=== PATIENT | female | born 1990 | race Caucasian/White ===

== ENCOUNTER 2020-06-01 01:00 | Inpatient (IN) | payer OTHER ==
[2020-06-01] MEDS: ELECTROLYTE-148 SOLN 1,000 ML IV SCH ×2 (02:00→07:58)
--- NOTE | 2020-06-01 02:02 | HP ---
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: Alzheimer's, CVA, Dementia, Migraine, Multiple Sclerosis, Peripheral Neuropathy, Parkinson's, Seizure, Syncope, TIA, Vertigo, Other Cardiovascular: No: AFIB, Aneurysm, Aortic Insufficiency, Aortic Stenosis, CAD, CHF, Deep Vein Thrombosis, HTN, Hyperlipdemia, VT, Mitral Insufficiency, Mitral Stenosis, Murmur, Pulmonary Hypertension, Other ...: 4 ...Para: 2 ...Term: 2 ...: 0 ...Spon : 1 ...Induced : 0 ...Living Children: 2 Heme/Onc: Yes: Anemia - Past Surgical History Past Surgical History: Yes: None Hx Myomectomy: No Hx Transabdominal Cerclage: No - Smoking History Smoking history: Never smoked Have you smoked in the past 12 months: No - Alcohol/Substance Use Hx Alcohol Use: No History of Substance Use: reports: None Home Medications - Allergies Allergies/Adverse Reactions: Allergies Allergy/AdvReac Type Severity Reaction Status Date / Time No Known Drug Allergies Allergy Verified 03/01/20 15:29 - Home Medications Home Medications: Ambulatory Orders Tablet 1 tab PO DAILY 03/01/20 Review of Systems - Review of Systems Constitutional: reports: No Symptoms Cardiovascular: reports: No Symptoms Respiratory: reports: No Symptoms Physical Exam - Maternity Constitutional: Yes: Well Nourished, No Distress, Calm - Abdominal Exam/OB Number of Fetuses: Single Presentation: Vertex Contractions: Yes Regularity: Irregular Intensity: Moderate Monitor Mode: External Category: I Accelerations: Non-Uniform Decelerations: None - Vaginal Exam/OB Vaginal Bleeding: No Speculum Exam: No Dilatation (cm): 5 Effacement (%): 80 Amniotic Membrane Status: Intact Presentation: Vertex/Position Station: -1 - Physical Exam Edema: No Imaging - Results Ultrasound: Report Reviewed Problem List - Problems (1) Vaginal delivery Code(s): O80 - ENCOUNTER FOR FULL-TERM UNCOMPLICATED DELIVERY Assessment/Plan 29yo @ 39+wks here in labor Admit to L&D Cat 1 tracing Epidural/Stadol prn AROM/Pitocin prn GBS negative Anticipate Troy Brock
[2020-06-01 02:12] LABS: BASO % 0.4 % (0-2.0); EOS % 0.2 % (0-4.5); HEMATOCRIT 35.9 % (32.4-45.2); HEMOGLOBIN 12.4 GM/dL (10.7-15.3); LYMPH % 14.6 % (8-40); MCH 31.6 pg (25.7-33.7); MCHC 34.6 g/dl (32.0-36.0); MEAN CELL VOLUME 91.5 fl (80-96); NEUT % 77.8 % (42.8-82.8); PLATELET COUNT 201 K/MM3 (134-434); RBC 3.92 M/mm3 (3.60-5.2); RDW 12.9 % (11.6-15.6); WHITE BLOOD COUNT 14.1 K/mm3 (4.0-10.0)
[2020-06-01 02:22] LABS: INR 0.95 (0.83-1.09); PROTHROMBIN TIME (PATIENT) 11.2 SEC (9.7-13.0)
[2020-06-01 02:24] LABS: ACTIVATED PTT 29.4 SECONDS (25.2-36.5)
[2020-06-01 02:54] LABS: BLOOD UREA NITROGEN 8.4 mg/dL (7-18); CALCIUM 9.2 mg/dL (8.5-10.1); CREATININE 0.6 mg/dL (0.55-1.3); POTASSIUM 3.8 mmol/L (3.5-5.1)
[2020-06-01 03:00] VITALS: BMI 25.1
[2020-06-01] MEDS ORDERED: PROMETHAZINE HCL 25 MG/1 ML VIAL IVPB ONE (03:00)
[2020-06-01] MEDS ORDERED: BUTORPHANOL TARTRATE 1 MG/ML VIAL IVPB ONE (03:00)
[2020-06-01] MEDS ORDERED: PROMETHAZINE HCL 25 MG/1 ML VIAL ONE (03:08)
[2020-06-01] MEDS ORDERED: BUTORPHANOL TARTRATE 2 MG/ML VIAL ONE (03:08)
--- NOTE | 2020-06-01 08:25 | PN ---
Progress Note, Labor Vaginal Exam #1 Labor Exam Date: 06/01/20 Labor Exam Time: 08:24 Heart Rate (range): Cat I Dilatation: 10 Effacement (%): 100 Amniotic Membrane Status: Ruptured Presentation: Vertex/Position Station: 0 Remarks: SROM at 8AM Start pushing Anticipate KIM Brock MD
[2020-06-01] MEDS ORDERED: OXYTOCIN 20 UNITS in 0.9% NS 20 UNIT/1,000 ML INFUS.BAG IV ONE ×2 (08:26→11:52)
[2020-06-01] MEDS ORDERED: OXYTOCIN 10 UNITS/ML VIAL ONE (09:23)
[2020-06-01] MEDS: OXYTOCIN 20 UNITS in 0.9% NS 20 UNIT/1,000 ML INFUS.BAG IV SCH ×2 (09:25→13:00)
--- NOTE | 2020-06-01 09:36 | PN ---
Delivery - Delivery Vaginal Delivery: Spontaneous Type of Anesthesia: None Episiotomy/Laceration: None EBL (cc): 500 Delivery, Single - Stages of Labor Placenta: Yes: Spontaneous - Condition of Infant Car R[employer]/Wet Pan [employer]er Present: No Infant Gender: Male Position: Left, OA - 1 Minute Total Score: 9 5 Minutes Total Score: 9 - Feeding Plan Initial Plan: Elected not to breastfeed exclusively throughout hospitalization Benefits of Exclusively reinforced: No Remarks - Remarks Remarks: of VMI from SSOA position over intact perineum. No anesthesia. No nuchal. No meconium. Spontaneous delivery of anterior shoulder and body. placed on mother's abdomen. Cord clamped and cut by provider and significant other. Weight pending to allow skin to skin. Apgars 9/9. Spontaneous delivery of placenta with 3VC. Fundus firm, however, maternal IV access lost. IM pitocin given. 1000mc PA cytotec given. Fundus remained firm. Perineum inspected, no lacerations. EBL 500ml. Mother and baby doing well. Alyse Brock MD
[2020-06-01] MEDS ORDERED: BENZOCAINE 20% 57 GM BOTTLE TP PRN (09:37)
[2020-06-01] MEDS ORDERED: OXYTOCIN 10 UNITS/ML VIAL IM ONE (09:37)
[2020-06-01] MEDS ORDERED: METHYLERGONOVINE MALEATE 0.2 MG/1 ML AMP IM PRN (09:37)
[2020-06-01] MEDS ORDERED: WITCH HAZEL 50% (TUCKS) 40 PAD/JAR PAD TP PRN (09:37)
[2020-06-01] MEDS ORDERED: BISACODYL 10 MG SUPP.RECT RC PRN (09:37)
[2020-06-01] MEDS ORDERED: BENZOCAINE 28 GM HEMORRHOIDAL OINTMENT TP PRN (09:37)
[2020-06-01] MEDS ORDERED: MISOPROSTOL 200 MCG TABLET PV SCH (10:15)
[2020-06-01] MEDS ORDERED: MISOPROSTOL 200 MCG TABLET NR ONE (11:30)
[2020-06-01] MEDS ORDERED: CARBOPROST TROMETHAMINE 250 MCG/ML AMPUL IM ONE (12:04)
--- NOTE | 2020-06-01 12:13 | PD.OB.PROG ---
Past Medical History - Primary Care Physician Documenting Provider Type: Laborist - Admission Chief Complaint: asked to evaluate patient for post bleeding after ; had received Pitocin and Cytotec for same before; speculum exam reveals no lacerations; exploration manually= 300cc of blood clots; mow uterus firm. Discussed with Dr Roldan; will give Hemavate x 1 History Source: Patient Limitations to Obtaining History: No Limitations - Nursing Documentation Maternal Triage Index: Maternal Triage Index ( Priority 4, Non-urgent MFTI) Hemorrhage Risk Assessment: Risk Level Low Risk High Level Risk Factors for None Hemorrhage Medium Level Risk Factors for None of the above Hemorrhage Low Level Risk Factors for No previous uterine incis,Benz Pregnaancy, Hemorrhage Four (4) or less previous,No known bleeding,No history of PPH,None of the above Nursing Documentation Reviewed: Yes - Past Medical History ...: 4 ...Para: 2 ...Term: 2 ...: 0 ...Spon : 1 ...Induced : 0 ...Living Children: 2 ...LMP: 08/08/19 ...EDC by Sono: 06/03/20 - Past Surgical History Past Surgical History: Yes: None - Smoking History Smoking history: Never smoked Have you smoked in the past 12 months: No - Alcohol/Substance Use Hx Alcohol Use: No History of Substance Use: reports: None Physical Exam - Obstetrical Vital Signs: Vital Signs Temperature 97.8 F 06/01/20 08:15 Pulse Rate 84 06/01/20 10:45 Respiratory Rate 18 06/01/20 10:45 Blood Pressure 120/75 06/01/20 10:45 O2 Sat by Pulse Oximetry (%) Constitutional: Yes: No Distress Eyes: Yes: WNL Neck: Yes: WNL - Labs Lab Results: CBC, BMP 06/01/20 02:03 06/01/20 02:03 Problem List - Problems (1) PPH ( hemorrhage) Problems reviewed: Yes Qualifiers: hemorrhage type: other immediate Qualified Code(s): O72.1 - [facility] er immediate hemorrhage Assessment/Plan I/P: PPH; will give Hemabate
[2020-06-01] MEDS: ACETAMINOPHEN 325 MG TABLET (FP) PO PRN ×3 (13:45→21:25)
[2020-06-01] MEDS: IBUPROFEN 600 MG TABLET (FP) PO PRN ×3 (13:45→21:25)
[2020-06-01] MEDS ORDERED: IBUPROFEN 600 MG TABLET (FP) PO ONE (13:46)
[2020-06-01] MEDS ORDERED: ACETAMINOPHEN 325 MG TABLET (FP) ONE (13:47)
[2020-06-01] MEDS: FERROUS SO4 325 MG TABLET (FP) PO SCH ×2 (13:50→18:32)
[2020-06-01] MEDS: PRENATAL VITAMINS W/ FOLIC ACID TABLET (FP) PO SCH (13:52)
[2020-06-02 07:39] LABS: BASO % 0.2 % (0-2.0); EOS % 0.3 % (0-4.5); HEMATOCRIT 19.8 % (32.4-45.2); LYMPH % 13.7 % (8-40); MCH 31.3 pg (25.7-33.7); MCHC 34.6 g/dl (32.0-36.0); MEAN CELL VOLUME 90.6 fl (80-96); MEAN PLT VOLUME 9.5 fl (7.5-11.1); MONO % 5.7 % (3.8-10.2); NEUT % 80.1 % (42.8-82.8); PLATELET COUNT 198 K/MM3 (134-434); RBC 2.19 M/mm3 (3.60-5.2); RDW 13.1 % (11.6-15.6); WHITE BLOOD COUNT 18.3 K/mm3 (4.0-10.0)
--- NOTE | 2020-06-02 08:09 | PN ---
Post Progress Note - Subjective Subjective: Feels well. Ambulating. No N/V. No dizziness. No fevers/chills. Lochia << menses today. , but no let down yet. Type of Delivery: Vital Signs: Vital Signs Temperature 97.9 F 06/02/20 06:00 Pulse Rate 80 06/02/20 06:00 Respiratory Rate 18 06/02/20 06:00 Blood Pressure 109/72 06/02/20 06:00 O2 Sat by Pulse Oximetry (%) Uterus: Yes: Fundus Firm Incision: Yes: Dressing dry and intact Abdomen/GI: Yes: Abdomen soft, Tolerating PO Lochia: Yes: Rubra Lochia, amount: Small Extremities: Yes: Calves non-tender Perineum: Yes: Intact Activity: Ambulating - Labs Labs: CBC WBC 14.1 K/mm3 (4.0-10.0) H 06/01/20 02:03 RBC 3.92 M/mm3 (3.60-5.2) 06/01/20 02:03 Hgb 12.4 GM/dL (10.7-15.3) 06/01/20 02:03 Hct 35.9 % (32.4-45.2) D 06/01/20 02:03 MCV 91.5 fl (80-96) 06/01/20 02:03 MCH 31.6 pg (25.7-33.7) 06/01/20 02:03 MCHC 34.6 g/dl (32.0-36.0) 06/01/20 02:03 RDW 12.9 % (11.6-15.6) 06/01/20 02:03 Plt Count 201 K/MM3 (134-434) 06/01/20 02:03 MPV 10.0 fl (7.5-11.1) 06/01/20 02:03 Absolute Neuts (auto) 11.0 K/mm3 (1.5-8.0) H 06/01/20 02:03 Neutrophils % 77.8 % (42.8-82.8) 06/01/20 02:03 Lymphocytes % 14.6 % (8-40) 06/01/20 02:03 Monocytes % 7.0 % (3.8-10.2) 06/01/20 02:03 Eosinophils % 0.2 % (0-4.5) 06/01/20 02:03 Basophils % 0.4 % (0-2.0) 06/01/20 02:03 Nucleated RBC % 0 % (0-0) 06/01/20 02:03 Problem List - Problems (1) Vaginal delivery Code(s): O80 - ENCOUNTER FOR FULL-TERM UNCOMPLICATED DELIVERY Assessment/Plan 29yo s/p c/b PPH, PPD#1 Routine PP care PO pain control H/H 6.9- pt declines transfusion. PO iron. Will repeat CBC in 24 hours or prn sooner if issues arise Plan for d/c tomorrow Troy Brock
[2020-06-02 08:16] LABS: HEMOGLOBIN 6.9 GM/dL (10.7-15.3)
[2020-06-02] MEDS: FERROUS SO4 325 MG TABLET (FP) PO SCH ×3 (09:09→17:39)
[2020-06-02] MEDS: PRENATAL VITAMINS W/ FOLIC ACID TABLET (FP) PO SCH (09:09)
[2020-06-02] MEDS: ACETAMINOPHEN 325 MG TABLET (FP) PO PRN (12:09)
[2020-06-02] MEDS: IBUPROFEN 600 MG TABLET (FP) PO PRN (12:10)
[2020-06-02] MEDS ORDERED: SENNOSIDES/DOCUSATE COMBO (SENNA PLUS) TABLET (UD) PO PRN (22:00)
[2020-06-03 08:01] LABS: BASO % 0.2 % (0-2.0); EOS % 0.6 % (0-4.5); HEMATOCRIT 18.4 % (32.4-45.2); MCH 31.1 pg (25.7-33.7); MCHC 34.5 g/dl (32.0-36.0); MEAN CELL VOLUME 90.2 fl (80-96); MEAN PLT VOLUME 9.5 fl (7.5-11.1); MONO % 5.6 % (3.8-10.2); NEUT % 78.6 % (42.8-82.8); PLATELET COUNT 198 K/MM3 (134-434); RBC 2.05 M/mm3 (3.60-5.2); WHITE BLOOD COUNT 15.1 K/mm3 (4.0-10.0)
[2020-06-03 08:07] LABS: HEMOGLOBIN 6.4 GM/dL (10.7-15.3)
[2020-06-03] MEDS: FERROUS SO4 325 MG TABLET (FP) PO SCH ×2 (08:25→13:31)
[2020-06-03] MEDS: IBUPROFEN 600 MG TABLET (FP) PO PRN (08:25)
[2020-06-03] MEDS: ACETAMINOPHEN 325 MG TABLET (FP) PO PRN (08:26)
[2020-06-03] MEDS: PRENATAL VITAMINS W/ FOLIC ACID TABLET (FP) PO SCH (10:09)
--- NOTE | 2020-06-03 11:00 | PN ---
Post Progress Note - Subjective Subjective: Feels well. No dizziness, weakness. Mild headache yesterday. Still declining transfusion Type of Delivery: Vital Signs: Vital Signs Temperature 97.9 F 06/02/20 20:34 Pulse Rate 92 H 06/02/20 20:34 Respiratory Rate 20 06/02/20 20:34 Blood Pressure 103/62 06/02/20 20:34 O2 Sat by Pulse Oximetry (%) Uterus: Yes: Fundus below umbilicus Abdomen/GI: Yes: Abdomen soft, Passing flatus, Tolerating PO Lochia: Yes: Rubra Lochia, amount: Small Extremities: Yes: Calves non-tender Perineum: Yes: Intact Activity: Ambulating - Labs Labs: CBC WBC 15.1 K/mm3 (4.0-10.0) H 06/03/20 07:20 RBC 2.05 M/mm3 (3.60-5.2) L 06/03/20 07:20 Hgb 6.4 GM/dL (10.7-15.3) L* 06/03/20 07:20 Hct 18.4 % (32.4-45.2) L 06/03/20 07:20 MCV 90.2 fl (80-96) 06/03/20 07:20 MCH 31.1 pg (25.7-33.7) 06/03/20 07:20 MCHC 34.5 g/dl (32.0-36.0) 06/03/20 07:20 RDW 13.0 % (11.6-15.6) 06/03/20 07:20 Plt Count 198 K/MM3 (134-434) 06/03/20 07:20 MPV 9.5 fl (7.5-11.1) 06/03/20 07:20 Absolute Neuts (auto) 11.9 K/mm3 (1.5-8.0) H 06/03/20 07:20 Neutrophils % 78.6 % (42.8-82.8) 06/03/20 07:20 Lymphocytes % 15.0 % (8-40) 06/03/20 07:20 Monocytes % 5.6 % (3.8-10.2) 06/03/20 07:20 Eosinophils % 0.6 % (0-4.5) D 06/03/20 07:20 Basophils % 0.2 % (0-2.0) 06/03/20 07:20 Nucleated RBC % 0 % (0-0) 06/03/20 07:20 Problem List - Problems (1) Vaginal delivery Code(s): O80 - ENCOUNTER FOR FULL-TERM UNCOMPLICATED DELIVERY Assessment/Plan 29yo s/p c/b PPH, PPD#2 Routine PP care PO pain control H/H 6.4/16- pt declines transfusion. PO iron. Discussed risk of anemia at home (fall with injury to self/baby/others). Still declining. Will repeat CBC in 24 hours or prn sooner if issues arise Plan for d/c today. Short follow up in office Troy Brock
[2020-06-03 14:01] VITALS: BP 110/74; PULSE 89; TEMP 98.6
== END 2020-06-03 14:20 | disposition home or self-care (01) | DRG 560 ==
LOC: JLDR 01:00 → J3W 15:22
PROVIDERS: ADMIT Obstetrics & Gynecology; ATTEND Obstetrics & Gynecology
PROC: 10907ZC Drainage of Amniotic Fluid, Therapeutic from Products of Conception, Via Natural or Artificial Opening (ICD-10-PCS; principal; 2020-06-01)
PROC: 10E0XZZ Delivery of Products of Conception, External Approach (ICD-10-PCS; 2020-06-01)
DX: O72.1 Other immediate postpartum hemorrhage (principal); O90.81 Anemia of the puerperium; D64.9 Anemia, unspecified; Z3A.39 39 weeks gestation of pregnancy; Z37.0 Single live birth
CPT/HCPCS: 36415; 59409; 80048; 85025; 85610; 85730; 86780; 86850; 86900; 86901; 87389; U0003

== ENCOUNTER 2022-07-07 22:06 | Emergency (ER) | payer OTHER ==
[2022-07-07 22:27] VITALS: TEMP 98.4; BMI 18.8
[2022-07-07] MEDS ORDERED: ACETAMINOPHEN 1000 MG/100 ML BAG IVPB ONE (23:30)
[2022-07-07] MEDS ORDERED: ACETAMINOPHEN INJECTION 100 ML IVPB ONE (23:49)
[2022-07-07] MEDS ORDERED: SODIUM CHLORIDE 0.9% 500 ML INFUS.BAG IV ONE (23:57)
[2022-07-08 00:50] LABS: BASO % 0.4 % (0-2.0); EOS % 1.3 % (0-4.5); HEMOGLOBIN 12.3 GM/dL (10.7-15.3); LYMPH % 26.7 % (8-40); MCH 29.6 pg (25.7-33.7); MCHC 36.2 g/dl (32.0-36.0); MEAN CELL VOLUME 81.8 fl (80-96); MONO % 6.6 % (3.8-10.2); PLATELET COUNT 260 10^3/uL (134-434); RBC 4.16 M/mm3 (3.60-5.2); RDW 12.9 % (11.6-15.6); WHITE BLOOD COUNT 10.6 K/mm3 (4.0-10.0)
[2022-07-08 01:45] VITALS: BP 106/70; PULSE 67; RESP 17
[2022-07-08 02:42] LABS: CALCIUM 9.1 mg/dL (8.5-10.1)
[2022-07-08 02:43] LABS: ALBUMIN 3.9 g/dl (3.4-5.0); BLOOD UREA NITROGEN 8.2 mg/dL (7-18)
[2022-07-08 02:45] LABS: CREATININE 0.5 mg/dL (0.55-1.3)
[2022-07-08 02:47] LABS: TOT PROT 7.4 g/dl (6.4-8.2)
[2022-07-08 02:48] LABS: BILIRUBIN,TOTAL 0.3 mg/dL (0.2-1)
[2022-07-08 02:58] LABS: URINE APPEARANCE CLEAR; URINE BILIRUBIN NEGATIVE (NEGATIVE); URINE COLOR YELLOW; URINE GLUCOSE (UA) NEGATIVE (NEGATIVE); URINE KETONE NEGATIVE (NEGATIVE); URINE LEUK ESTERASE NEGATIVE (NEGATIVE); URINE NITRITE NEGATIVE (NEGATIVE); URINE PROTEIN NEGATIVE (NEGATIVE)
== END 2022-07-08 04:23 | disposition home or self-care (01) ==
LOC: JER 22:06
PROC: 3E033NZ Introduction of Analgesics, Hypnotics, Sedatives into Peripheral Vein, Percutaneous Approach (ICD-10-PCS; principal; 2022-07-07)
DX: B37.3 Candidiasis of vulva and vagina (principal); R10.9 Unspecified abdominal pain
CPT/HCPCS: 36415; 76817-TC; 80053; 81003; 84702; 85025; 86850; 86900; 86901; 87081; 87086; 99284-25

== ENCOUNTER 2023-01-11 23:19 | Emergency (ER) | payer OTHER ==
[2023-01-11 23:24] VITALS: BP 114/73; PULSE 78; RESP 16; TEMP 97.8; BMI 27.3
[2023-01-12 02:54] LABS: BASO % 0.4 % (0-2.0); EOS % 1.2 % (0-4.5); HEMATOCRIT 33.4 % (32.4-45.2); HEMOGLOBIN 11.7 GM/dL (10.7-15.3); LYMPH % 17.6 % (8-40); MCH 30.3 pg (25.7-33.7); MCHC 34.9 g/dl (32.0-36.0); MEAN CELL VOLUME 86.7 fl (80-96); MEAN PLT VOLUME 9.2 fl (7.5-11.1); MONO % 7.3 % (3.8-10.2); NEUT % 73.5 % (42.8-82.8); PLATELET COUNT 263 10^3/uL (134-434); RBC 3.85 M/mm3 (3.60-5.2); RDW 13.1 % (11.6-15.6); WHITE BLOOD COUNT 13.5 K/mm3 (4.0-10.0)
[2023-01-12 03:02] LABS: CALCIUM 9.2 mg/dL (8.5-10.1)
[2023-01-12 03:03] LABS: ALBUMIN 2.8 g/dl (3.4-5.0); BLOOD UREA NITROGEN 6.7 mg/dL (7-18)
[2023-01-12 03:05] LABS: CREATININE 0.6 mg/dL (0.55-1.3)
[2023-01-12 03:07] LABS: BILIRUBIN,TOTAL 0.4 mg/dL (0.2-1); TOT PROT 6.4 g/dl (6.4-8.2)
[2023-01-12 08:01] LABS: EPI CELLS 11 /uL (0-25.1); HYALINE CASTS 0 /uL (0-3.1); URINE APPEARANCE CLEAR; URINE BACTERIA 1473 /uL (0-1359); URINE BILIRUBIN NEGATIVE (NEGATIVE); URINE COLOR YELLOW; URINE GLUCOSE (UA) NEGATIVE (NEGATIVE); URINE KETONE NEGATIVE (NEGATIVE); URINE LEUK ESTERASE 3+ (NEGATIVE); URINE NITRITE NEGATIVE (NEGATIVE); URINE PROTEIN NEGATIVE (NEGATIVE); URINE RBC 1 /uL (0-23.9); URINE UROBILINOGEN 0.2 mg/dL (0.2-1.0); URINE WBC 77 /uL (0-25.8)
== END 2023-01-12 04:52 | disposition home or self-care (01) ==
LOC: JER 23:19
DX: O26.893 Other specified pregnancy related conditions, third trimester (principal); R10.11 Right upper quadrant pain; Z3A.38 38 weeks gestation of pregnancy
CPT/HCPCS: 36415; 76856-TC; 80053; 81003; 83690; 85025; 87077; 87086; 99284-25

== ENCOUNTER 2023-01-15 02:03 | Inpatient (IN) | payer OTHER ==
[2023-01-15] MEDS ORDERED: AMPICILLIN SODIUM 2 GM VIAL ONE (03:04)
[2023-01-15] MEDS ORDERED: ELECTROLYTE-148 SOLN 1,000 ML IV SCH (03:15)
[2023-01-15 03:42] LABS: BASO % 0.2 % (0-2.0); EOS % 0.5 % (0-4.5); HEMATOCRIT 34.1 % (32.4-45.2); HEMOGLOBIN 12.3 GM/dL (10.7-15.3); LYMPH % 16.8 % (8-40); MCH 30.9 pg (25.7-33.7); MCHC 36.2 g/dl (32.0-36.0); MEAN CELL VOLUME 85.4 fl (80-96); MEAN PLT VOLUME 8.8 fl (7.5-11.1); MONO % 7.7 % (3.8-10.2); NEUT % 74.8 % (42.8-82.8); PLATELET COUNT 270 10^3/uL (134-434); RBC 3.99 M/mm3 (3.60-5.2); RDW 13.5 % (11.6-15.6); WHITE BLOOD COUNT 16.6 K/mm3 (4.0-10.0)
[2023-01-15 03:55] LABS: INR 1.03 (0.83-1.09)
[2023-01-15] MEDS ORDERED: OXYTOCIN 20 UNITS in 0.9% NS 20 UNIT/1,000 ML INFUS.BAG IV ONE (03:57)
[2023-01-15] MEDS ORDERED: LIDOCAINE HCL 1% PRESERVATIVE FREE - 30ML VIAL ONE (03:57)
[2023-01-15 03:58] LABS: ACTIVATED PTT 29.1 SECONDS (25.2-36.5)
[2023-01-15 04:12] LABS: CALCIUM 9.3 mg/dL (8.5-10.1)
[2023-01-15] MEDS ORDERED: MISOPROSTOL 200 MCG TABLET ONE (04:12)
[2023-01-15 04:13] LABS: BLOOD UREA NITROGEN 9.7 mg/dL (7-18)
[2023-01-15 04:16] LABS: CREATININE 0.5 mg/dL (0.55-1.3)
[2023-01-15] MEDS ORDERED: ACETAMINOPHEN 325 MG TABLET (FP) PO PRN (04:45)
[2023-01-15] MEDS ORDERED: BISACODYL 10 MG SUPP.RECT RC PRN (04:45)
[2023-01-15] MEDS ORDERED: BENZOCAINE 20% 57 GM BOTTLE TP PRN (04:45)
[2023-01-15] MEDS ORDERED: WITCH HAZEL 50% (TUCKS) 40 PAD/JAR PAD TP PRN (04:45)
[2023-01-15] MEDS ORDERED: BENZOCAINE 28 GM HEMORRHOIDAL OINTMENT TP PRN (04:45)
[2023-01-15] MEDS ORDERED: OXYTOCIN 20 UNITS in 0.9% NS 20 UNIT/1,000 ML INFUS.BAG IV SCH (04:45)
[2023-01-15] MEDS ORDERED: METHYLERGONOVINE MALEATE 0.2 MG/1 ML AMP IM ONE (04:45)
[2023-01-15] MEDS ORDERED: MISOPROSTOL 100 MCG TABLET PV ONE (04:49)
[2023-01-15 05:36] LABS: CORD BASE EXCESS -4.6 mmol/L (0-2); CORD HCO3 25.3 mmHg (20-29); CORD PCO2 67.9 mmHg (30-78); CORD pH 7.189 (7.14-7.44)
[2023-01-15 05:39] LABS: CORD BASE EXCESS -3.8 mmol/L (0-2); CORD PCO2 42.3 mmHg (30-78); CORD pH 7.333 (7.14-7.44)
[2023-01-15 05:53] VITALS: BMI 27.3
[2023-01-15] MEDS: IBUPROFEN 600 MG TABLET (FP) PO PRN ×2 (07:05→20:33)
[2023-01-16] MEDS: IBUPROFEN 600 MG TABLET (FP) PO PRN ×2 (02:47→12:42)
[2023-01-16 07:47] LABS: BASO % 0.3 % (0-2.0); EOS % 0.8 % (0-4.5); HEMATOCRIT 29.9 % (32.4-45.2); HEMOGLOBIN 10.7 GM/dL (10.7-15.3); LYMPH % 19.6 % (8-40); MCH 30.6 pg (25.7-33.7); MCHC 35.7 g/dl (32.0-36.0); MEAN CELL VOLUME 85.9 fl (80-96); MEAN PLT VOLUME 9.5 fl (7.5-11.1); NEUT % 73.3 % (42.8-82.8); PLATELET COUNT 243 10^3/uL (134-434); RBC 3.48 M/mm3 (3.60-5.2); RDW 13.2 % (11.6-15.6); WHITE BLOOD COUNT 15.6 K/mm3 (4.0-10.0)
[2023-01-16 10:13] VITALS: BP 106/71; PULSE 66; RESP 18; TEMP 98.2
[2023-01-16 10:54] LABS: POC NITRAZINE POS
[2023-01-16] MEDS ORDERED: SENNOSIDES/DOCUSATE COMBO (SENNA PLUS) TABLET (UD) PO PRN (22:00)
== END 2023-01-16 13:50 | disposition home or self-care (01) | DRG 560 ==
LOC: JLDR 02:03 → J3W 05:50
PROVIDERS: ADMIT Student in an Organized Health Care Education/Training Program; ATTEND Student in an Organized Health Care Education/Training Program
PROC: 10E0XZZ Delivery of Products of Conception, External Approach (ICD-10-PCS; principal; 2023-01-15)
PROC: 0HQ9XZZ Repair Perineum Skin, External Approach (ICD-10-PCS; 2023-01-15)
DX: O36.63X0 Maternal care for excessive fetal growth, third trimester, not applicable or unspecified (principal); O77.0 Labor and delivery complicated by meconium in amniotic fluid; O99.824 Streptococcus B carrier state complicating childbirth; O75.89 Other specified complications of labor and delivery; O70.0 First degree perineal laceration during delivery; Z3A.38 38 weeks gestation of pregnancy; Z37.0 Single live birth
CPT/HCPCS: 36415; 36600; 59409; 80048; 82803; 83986-QW; 85025; 85610; 85730; 86780; 86850; 86900; 86901; C9803-CS; U0003; U0005

== ENCOUNTER 2025-01-10 09:04 | Emergency (ER) | payer OTHER ==
[2025-01-10 09:09] VITALS: BP 139/92; PULSE 75; RESP 18; TEMP 97.9; BMI 18.8
[2025-01-10] MEDS ORDERED: LIDOCAINE 4% PATCH TP ONE (09:48)
[2025-01-10] MEDS ORDERED: ACETAMINOPHEN 325 MG TABLET (FP) ONE (09:48)
[2025-01-10] MEDS: LIDOCAINE 4% PATCH TP ONE (09:52)
[2025-01-10] MEDS: ACETAMINOPHEN 500 MG TABLET (FP) PO ONE (09:52)
[2025-01-10] MEDS ORDERED: LIDOCAINE PATCH REMOVAL MC SCH (22:00)
== END 2025-01-10 10:05 | disposition home or self-care (01) ==
LOC: JER 09:04
DX: M54.2 Cervicalgia (principal)
CPT/HCPCS: 93005; 93010; 99283-25